=== PATIENT | female | born 1930 | race Two or more races ===

== ENCOUNTER 2016-08-01 21:30 | Inpatient (IN) | payer BC ==
--- NOTE | ~2016-08-01 | HP ---
History And Physical [id number] [facility] [place]. [address] NAME: MIGUELANGEL NICKERSON : 32 STATUS : ADM Abe PAT#: [id number] AGE: 85 ADM/REG DATE : 08/01/16 MR#: [id number] REPORT SERV DATE: 08/02/16 DICTATED BY: JANIE CRENSHAW DATE: 08/02/16 REPORT STATUS : Draft TRANSCRIBED BY: MODL DATE: 08/02/16 DATE OF ADMISSION: 08/01/2016 CHIEF COMPLAINT: An 85-year-old female, presenting with severe back pain and pain medicine- induced encephalopathy. HISTORY OF PRESENT ILLNESS: The patient's history was obtained through careful interview with the patient, daughter, and granddaughter coupled with review of [facility] medical records. The patient injured her back trying to lift something heavy on 06/23/2016. She went to see her primary care physician and was apparently placed on muscle relaxers. Then, over the days following this, she developed increasing debilitation, increasing back pain. She went to see her primary care physician again and was diagnosed with urinary tract infection and placed on an antibiotic. Then, on 06/30/2016, the patient injured her left shoulder and dislocated it. She became increasingly weak. She had to have her shoulder relocated, but was noncompliant with the sling that was given to her. Unfortunately, the patient redislocated her left shoulder on 07/08/2016 and then again on 07/12/2016, but by 07/12/2016, her back pain and debilitation was increasing so much that she was admitted overnight at [facility]. Her pain was increasing and becoming quite severe, and at first, it was thought the patient had mild compression fracture of the spine. Eight days ago, the patient was becoming so debilitated that she was admitted to [facility] for physical therapy. She has had only limited progress there, but has actually had three separate falls in the last eight days. She has been on hydrocodone scheduled every four to six hours and has had increasing confusion as a result of this, sometimes becoming delirious and combative and sometimes just somnolent and lethargic. She finally went on 08/01/[address] Harrison, orthopedic surgeon, who thought that the MRI that had been performed earlier did not show compression fracture, but just some spinal stenosis with bulging disks and thought the patient's back pain might improve with an epidural injection to the spine. This was planned for 08/02/2016. Unfortunately, the patient's confusion at [facility] has become so severe that she has been difficult to control and to calm down, therefore the family felt she had to come into the hospital for further evaluation and stabilization. She describes her back pain is in the middle without radiation or sciatica 10/10 severity. History And Physical [address] [address] NAME: MIGUELANGEL NICKERSON : 32 STATUS : ADM Abe PAT#: [id number] AGE: 85 ADM/REG DATE : 08/01/16 MR#: [id number] REPORT SERV DATE: 08/02/16 DICTATED BY: JANIE CRENSHAW DATE: 08/02/16 REPORT STATUS : Draft TRANSCRIBED BY: SRIDEVI DATE: 08/02/16 She has had constipation, nausea, abdominal tightness, discomfort. No shortness of breath. No chest pain. REVIEW OF SYSTEMS: Otherwise, a 14-point review of systems was obtained was negative. PAST MEDICAL HISTORY: 1. Recurrent dislocated left shoulder in 2017. 2. Hypertension. 3. Urinary tract infection. 4. Dyslipidemia. 5. Depression. 6. Spinal stenosis. 7. No cardiac disease. No lung disease. PAST SURGICAL HISTORY: 1. Left shoulder dislocation repair. 2. . 3. Appendectomy. 4. Hemorrhoidectomy. ALLERGIES: SEROQUEL, MORPHINE, AND DILAUDID. EACH OF WHICH SEEMS TO INCREASE THE PATIENT'S CONFUSION, SO NOT A "TRUE ALLERGY." SOCIAL HISTORY: She lives in the basement of her daughter's home. She was independent for activities of daily living prior to this injury. She is . Her granddaughter has worked as a nurse for Dr. Harrison in the past. The patient originally grew up in [place]. No tobacco abuse. No alcohol abuse. Now has been rehabilitating at [facility]. FAMILY HISTORY: Heart disease. CURRENT MEDICATIONS: Include hydrocodone 5 every four hours p.r.n., Norvasc 2.5 mg p.o. daily, Dulcolax, calcium with vitamin D, Colace, Pepcid, lisinopril 40 mg p.o. daily, naproxen p.r.n., Zofran, Paxil 30 mg p.o. daily, MiraLAX a packet daily. PHYSICAL EXAMINATION: VITAL SIGNS: Temperature 96.1, pulse 97, blood pressure 171/85, respiratory rate 24, O2 saturation 99% on room air. GENERAL: A pleasant, cooperative, female. Her pain is well controlled at the time of my evaluation. She is not in any particular distress. HEENT: Pupils equal, round, and reactive to light. No conjunctival pallor. No scleral icterus. Nares are patent. Oropharynx is clear of obstruction. Dry mucous membranes. NECK: Trachea midline. No thyromegaly. LYMPH: No cervical lymphadenopathy. No supraclavicular lymphadenopathy. History And Physical [address] [address] NAME: MIGUELANGEL NICKERSON : 32 STATUS : ADM Abe PAT#: [id number] AGE: 85 ADM/REG DATE : 08/01/16 MR#: [id number] REPORT SERV DATE: 08/02/16 DICTATED BY: JANIE CRENSHAW DATE: 08/02/16 REPORT STATUS : Draft TRANSCRIBED BY: SRIDEVI DATE: 08/02/16 RESPIRATORY: Clear to auscultation at bases. No wheezes, rales, or rhonchi. Normal respiratory effort. CARDIOVASCULAR: Regular rate and rhythm. No murmurs, rubs, or gallops. No extremity edema is appreciated. ABDOMEN: Soft, nontender, nondistended. Normal bowel sounds auscultated throughout. No hepatosplenomegaly. DERMATOLOGICAL: Warm and dry extremities. No pallor. No cyanosis. PSYCHIATRIC: A flat affect, but she is in a good mood. Currently, she is very lethargic, but easily aroused with vocal stimuli. She is poorly oriented to details of her recent history and time, but is oriented to location. LABORATORY DATA: White blood cell count 10.4, hemoglobin 13, hematocrit 38, platelets 570. Sodium 127, potassium 3.6, chloride 92, bicarb 27, BUN 18, creatinine 0.84, glucose 119. INR 1.0. Lactic acid 1.2. Liver enzymes within normal limits urine. STUDIES: 1. Chest x-ray by my own evaluation shows no acute cardiopulmonary process. 2. EKG by my own evaluation shows sinus rhythm, left axis deviation. ASSESSMENT AND PLAN: 1. Severe back pain. Consult Dr. Harrison, orthopedic surgeon, for epidural injection. Use low-dose p.r.n. IV morphine and low-dose p.r.n. tramadol. Once the epidural injection is completed, we will try the Tylenol and nonsteroidal anti-inflammatory drugs for primary control of the patient's pain. 2. Acute encephalopathy induced by narcotic medications. 3. Hyponatremia, slightly dehydrated. We will give IV fluids. I would like to hold Paxil for now (had been held at [facility] prior to this admission). I would like to check studies for syndrome inappropriate antidiuretic hormone. 4. Constipation. Try increasing stool softeners and monitor. KPL/MODL Janie Crenshaw M.D. / [id number] CC: Yo Morales D.O.
--- NOTE | ~2016-08-01 | DS ---
Discharge Summary [facility] [address] [place]. [address] NAME: MIGUELANGEL NICKERSON : 32 STATUS : DIS IN PAT#: [id number] AGE: 86 ADM/REG DATE : 08/01/16 MR#: [id number] REPORT SERV DATE: 08/14/16 DICTATED BY: NOAH KEY DATE: 08/13/16 REPORT STATUS : Draft TRANSCRIBED BY: MODFrancesco DATE: 08/13/16 ADMISSION DATE: 08/01/2016 DISCHARGE DATE: 08/12/2016 REASON FOR ADMISSION: This is an 85-year-old female, who presented with severe back pain and pain medicine-induced encephalopathy. DISCHARGE DIAGNOSES: 1. Severe back pain status post L2-L3 laminectomy and fusion. 2. Status post hyponatremia secondary to Paxil. 3. Hypertension. 4. Encephalopathy with suspected underlying dementia. HOSPITAL COURSE: Please see admission H and P from Dr. Jose Eduardo Villasenor on 08/02/2016 and interim discharge summary from Gabriela Hugo M.D. on 08/08/2016 for full details on admission and hospital stay. I picked up the patient on 08/09/2016. The patient was status post her L2-L3 laminectomy performed by Dr. Harrison on 08/07/2016 and was doing well but was awaiting rehab placement. She retained some confusion postoperatively. She was admitted with some encephalopathy that seemed to be due to pain medicine. There was no evidence for UTI, pneumonia, infectious diarrhea, any infectious causes or metabolic causes found while she was here at the hospital, and the patient even on minimal pain medicine continued to have some confusion. I suspect that she has some underlying dementia that is causing this. At any rate, she is not combative or agitated, just some mild confusion. DISCHARGE CONDITION: Stable. DISCHARGE MEDICATIONS: 1. Dulcolax 10 mg p.o. p.r.n. 2. Caltrate 600 plus D one tablet daily. 3. Colace 100 mg p.o. t.i.d. 4. Pepcid 20 mg p.o. daily. 5. Hydrocodone 5/325 one tablet p.o. q.4 hours p.r.n. 6. MiraLAX powder one packet p.o. daily. 7. Naproxen 250 mg p.o. p.r.n. 8. Norvasc 2.5 mg p.o. daily. 9. Lisinopril 40 mg p.o. daily. DISCHARGE PLAN: The patient is discharged to [facility] for rehab and follow up with primary care after rehab. KIA/SRIDEVI Noah Key APN Discharge Summary [address] [address] NAME: MIGUELANGEL NICKERSON : 32 STATUS : DIS IN PAT#: [id number] AGE: 86 ADM/REG DATE : 08/01/16 MR#: [id number] REPORT SERV DATE: 08/14/16 DICTATED BY: NOAH KEY DATE: 08/13/16 REPORT STATUS : Draft TRANSCRIBED BY: SRIDEVI DATE: 08/13/16 / [id number] CC: Yo Underwood FNP James Jolley II, M.D.
--- NOTE | ~2016-08-01 | CN ---
Consultation Report [facility] [address] [place]. [address] NAME: MIGUELANGEL GARIBAY : 32 STATUS : ADM Abe PAT#: [id number] AGE: 85 ADM/REG DATE : 08/01/16 MR#: [id number] REPORT SERV DATE: 08/02/16 DICTATED BY: DATE: REPORT STATUS : Draft TRANSCRIBED BY: MODFrancesco DATE: 08/02/16 CONSULTATION DATE OF CONSULTATION: REASON FOR CONSULTATION: Hyponatremia. HISTORY OF PRESENT ILLNESS: Ms. Garibay is an 85-year-old white female with a history of hypertension, spinal stenosis, and recent compression fractures. She was over at [place] a little over week ago, diagnosed with compression fractures and gait disturbance, sent to [facility]. The family is unaware of any history of hyponatremia in the past. Her sodium on 07/27/2016 at [facility] was 137, and apparently over there, she has been on routine Lortab, [id number] Paxil, Robaxin, and became increasingly more confused. Labs were checked. She was found to have a sodium of 126 and sent to the emergency room here at [facility] She still has continued back pain. Altered mental status is still present but improving per family. She is less fidgety. There is a mention of dementia in [place] history and physical; however, the son who is at bedside is unaware of any dementia diagnosis. We were asked to see the patient for a sodium of 127 today. There are no urine studies available for review. Her Paxil has been held. Lortab is on hold. She has no shortness of breath, no edema, no nausea, vomiting, or diarrhea. PAST MEDICAL HISTORY: Hypertension, question of dementia, UTI history, dyslipidemia, spinal stenosis, depression, appendectomy, and hysterectomy. ALLERGIES: SEROQUEL. SOCIAL HISTORY: She is and lives with her daughter. No tobacco or alcohol use. MEDICATIONS: At the time of consultation: Norvasc, Caltrate, Colace, Pepcid, Prinivil, magnesium, Paxil which was stopped today, and MiraLax. REVIEW OF SYSTEMS: Difficult to obtain from the patient given language barrier and the patient's confusion. PHYSICAL EXAMINATION: VITAL SIGNS: Temperature 97.7, blood pressure 189/85, pulse 95, respiratory rate 16, O2 saturation is 95%. GENERAL: This is a female who is an awake and alert. HEENT: Normocephalic, atraumatic. Conjunctivae clear. Sclerae anicteric. Oral mucosa is dry. NECK: No lymphadenopathy. Neck veins are flat. RESPIRATIONS: Even and unlabored breath sounds. Clear to auscultation. HEART: Rate is regular. No murmur, rub, or gallop. ABDOMEN: Soft and nontender. Bowel sounds active. No masses or hepatosplenomegaly. No Consultation Report [address] [facility] [place] [address] NAME: MIGUELANGEL GARIBAY : 32 STATUS : ADM Abe PAT#: [id number] AGE: 85 ADM/REG DATE : 08/01/16 MR#: [id number] REPORT SERV DATE: 08/02/16 DICTATED BY: DATE: REPORT STATUS : Draft TRANSCRIBED BY: MODL DATE: 08/02/16 CVA tenderness. BACK: Within normal limits. EXTREMITIES: No edema, cyanosis, or clubbing. SKIN: No unusual rash or skin lesions. NEUROLOGIC: No generalized weakness. Mood and affect, pleasant and appropriate. PERTINENT LABS AND X-RAYS: Ammonia 32 and serum osmolality 267. Sodium 127, potassium 3.9, chloride 96, CO2 of 25, BUN of 13, creatinine of 0.59, calcium 8.9. WBCs 8.1, H and H are 12 and 35, platelets 502,000. Chest x-ray with a question of some edema, but BNP is 46. IMPRESSION: 1. Hyponatremia. 2. Encephalopathy. 3. Back pain with compression fractures. 4. Depression. PLAN/RECOMMENDATION: Hyponatremia could be SIADH related to opiates. However, also could be due to decreased p.o. intake with sedation. We will check urine sodium levels, given appropriate, we will go ahead and start sodium tablets and monitor sodium levels. We would hold off any Lasix for these at this time. We will follow along with you. Thank you for the consultation. Her Paxil has already appropriately been held. STAS CHRISTIN Puente / [id number] CC: Yo Aburto PHILIP ANTHONY
--- NOTE | ~2016-08-01 | OP ---
Record Of Operation [facility] [address] [place]. [address] NAME: MIGUELANGEL NICKERSON : 32 STATUS : ADM IN [facility]#: [id number] AGE: 85 ADM/REG DATE : 08/01/16 MR#: [id number] REPORT SERV DATE: 08/08/16 DICTATED BY: PÉREZ HARRISON II DATE: 08/08/16 REPORT STATUS : Draft TRANSCRIBED BY: MODFrancesco DATE: 08/08/16 DATE OF PROCEDURE: 08/07/2016 PREOPERATIVE DIAGNOSES: 1. L2-L3 stenosis, severe with disk extrusion. 2. Multilevel degenerative disk disease. 3. Right greater than left lower extremity radiculopathy. POSTOPERATIVE DIAGNOSES: 1. L2-L3 stenosis, severe with disk extrusion. 2. Multilevel degenerative disk disease. 3. Right greater than left lower extremity radiculopathy. PROCEDURES: 1. L2-L3 near complete facetectomy. 2. Posterolateral arthrodesis L2-L3. 3. Use of local autograft, allograft substitute, and bone morphogenic protein. 4. Use of stereotactic spinal imaging and the microscope. FLUIDS: Approximately 1200 mL LR. ESTIMATED BLOOD LOSS: 30 mL. DRAINS: One drain. COMPLICATIONS: No complications. ANTIBIOTIC: Preoperatively. PREOPERATIVE HISTORY: This is a friendly 85-year-old female, who was admitted for hyponatremia and severe lower extremity pain and weakness. I had seen her in the office recently with her granddaughter (Shelby). 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 I saw the patient in the office with her granddaughter. It appears that she was diagnosed initially with fractures. However, once an MRI was obtained, it appears there are no fractures, but severe stenosis. However, the quality of the MRI was not good because of her motion artifacts. She was now admitted to the hospital for hyponatremia and confusion and likely acute encephalopathy from the narcotic medications. This has now been treated and she is now alert and oriented and having still severe pains in the legs. We tried an epidural steroid injection last week, this did not give any significant relief. I discussed with her as well as her daughter and granddaughter the pros and cons of observation versus surgery. The patient was in severe pain and unable to mobilize secondary to pain. Despite her age, she has been quite active and very independent. Discussed with the family the pros and cons, and they wished to proceed. DESCRIPTION OF PROCEDURE: After informed consent was obtained, the patient was brought to Record Of Operation [address] [place]. [address] NAME: MIGUELANGEL NICKERSON : 32 STATUS : ADM IN PAT#: [id number] AGE: 85 ADM/REG DATE : 08/01/16 MR#: [id number] REPORT SERV DATE: 08/08/16 DICTATED BY: PÉREZ HARRISON II DATE: 08/08/16 REPORT STATUS : Draft TRANSCRIBED BY: MODL DATE: 08/08/16 the operating room at her request and general anesthesia achieved. I discussed with the granddaughter prior to the surgery that I did not believe instrumentation would be necessary. However, I was suspicious that I may need to perform an in situ fusion as I suspect that I would have to be fairly aggressive with the facets bilaterally. At this point, the intraoperative CT scan was completed and the stereotactic guidance used throughout the case. The minimally invasive incision was performed on the right, and she had primarily right leg pain with some left lower extremity pain. The Quadrant retractor was placed and the facet was identified. The microscope was now brought into place, and under microscopic visualization, the laminectomy was initiated with the high-speed bur, the Kerrison rongeurs, and the curettes. The central canal was now well decompressed by removing approximately 80% of the facet on the right. We removed approximately 50% on the left. There was a significant amount of macro motion at this level seemingly from the degenerative process and the facets. At this point, the dura was well identified. It was moderately erythematous. At this point, the L3 nerve root on the right appeared to be well decompressed. At this point, interestingly, we noted a moderate amount of scarring about the dura especially on the left. Further inspection of this, identified an encapsulated fragment of disk. This was now largely removed. This allowed significant decompression of the left L3 nerve root. At this point, the irrigation was performed. Next, the facet capsule was removed. Again, this area did appear to be moderately unstable. The transverse processes were now dissected upon and decortication performed of the L2 and L3 transverse process. Local autograft, allograft substitute, and bone morphogenic protein were then placed along these decorticated surfaces. The deep drain was placed. Standard closure was performed. The patient was extubated and transferred to PACU in stable condition. MAYTE/SRIDEVI Pérez Harrison II, M.D. / [id number] CC: Yo Aburto MD
--- NOTE | ~2016-08-01 | IDS ---
Interim Discharge Summary [facility] [address] [place]. [address] NAME: MIGUELANGEL NICKERSON : 32 STATUS : ADM IN [facility]#: [id number] AGE: 85 ADM/REG DATE : 08/01/16 MR#: [id number] REPORT SERV DATE: 08/08/16 DICTATED BY: GENNY NAJERA DATE: 08/08/16 REPORT STATUS : Draft TRANSCRIBED BY: MODL DATE: 08/08/16 ADMISSION DATE: 08/01/2016 DISCHARGE DATE: Days of service provided from 08/02/2016 to 08/08/2016. CURRENT MEDICAL PROBLEMS: 1. Status post back surgery for severe spinal stenosis done per Dr. Harrison on 08/07/2016. 2. Hyponatremia secondary to Paxil, currently resolved. Paxil needs to be discontinued as outpatient. Currently not on Paxil. 3. Hypertension, controlled most of the time. Increases with an episodes of agitation. 4. Agitation and encephalopathy, improved. Avoid narcotic pain medications which could cause agitation and encephalopathy. 5. Constipation, present on admission, resolved. Make sure the patient does not become constipated again. CONSULTANTS: Automation Mechanic, Dr. Payan for hyponatremia and Surgical Spine Ortho, Dr. Harrison. HISTORY OF PRESENT ILLNESS: Briefly, this is a very pleasant 85-year-old female, who was admitted for severe back pain and pain medication-induced encephalopathy and severe confusion. The patient had evaluation by Dr. Harrison and in the beginning of admission, he had epidural injection for her and her pain was partially relieved with epidural steroid injection. She did not have pain at rest, but she was unable to move her legs because of pain. So, Dr. Harrison evaluated the patient and he decided to do MRI which showed on 08/05/2016. Her MRI of the lumbar spine showed left paracentral disk extrusion at L2-L3 with compression of the left L3 nerve root and disk material extending into the left lateral recess. The effective AP canal diameter was 7 mm broad-based disk osteophyte complex at L3- L4. The effective AP canal diameter was 6 mm degenerative endplate changes at L2-L3 and L3- L4. So, Dr. Harrison decided to do surgery on her and she had lumbar surgery yesterday on 08/07/2016. Postsurgically, the patient had some agitation and confusion and once again, I told that patient should avoid narcotic pain medications as much as possible because they are making her confused. Her blood pressure before surgery was in the normal range on her current medication regimen. This morning was elevated because of agitation, so intravenous hydralazine was added to her blood pressure medication regimen. Hyponatremia. The patient had very refractory hyponatremia on admission and the earth science faculty member was consulted, Dr. Payan and he recommended to stop Paxil. After Paxil was discontinued, she was on fluid restriction and her sodium normalized. Now her sodium is 135. Attention to my partner, when the time will come to be discharged, the patient should not be on any Paxil. Her encephalopathy resolved before surgery. She was awake, alert, oriented at her baseline. It is very important to avoid pain medications for the patient not to become encephalopathic Interim Discharge Summary [place] [id number] [place]. [address] NAME: MIGUELANGEL NICKERSON : 32 STATUS : ADM IN [facility]#: [id number] AGE: 85 ADM/REG DATE : 08/01/16 MR#: [id number] REPORT SERV DATE: 08/08/16 DICTATED BY: GENNY NAJERA DATE: 08/08/16 REPORT STATUS : Draft TRANSCRIBED BY: SRIDEVI DATE: 08/08/16 again and also on admission, she was constipated and this is resolved, so it is also important to avoid constipation which could also cause encephalopathy. I discussed with the patient's family with her granddaughter, Rachid who used to be a nurse here and with her daughter regarding the patient's mentation and they told me that the patient does not have dementia, she just became confused because of the back pain and narcotic pain medications. They told me that in the shelter prior she was labeled as dementia, but in reality she does not have the diagnosis. Her blood pressure was rechecked. It is 130/61 in the stable range. She is able to drink fluids, so we will discontinue her intravenous fluids since she pulled out her IV. If necessary, nurse can restart them later. She is on Prinivil 20 mg a day, Norvasc 5 mg a day. She is on MiraLAX daily, Colace 100 p.o. b.i.d. Once again, she should not be on a Paxil and her sodium level today is 135, and she has a normal kidney function of creatinine 0.65. My partner will see this patient starting tomorrow morning. MG/MODL Genny Najera M.D. / [id number] CC: Yo Aburto D.O. Claude Galphin, M.D. James Jolley II, M.D.
[~2016-08-01 21:30] MED LIST: ALEVE220 MG PO; CALTRA600D PO; DSS PO; LISINOPRIL40 MG PO; METHOC500B PO; MIRALAX POWDER1 PKT PO; NORCO1 TA1 PO; NORV25 PO; NORVASC PO; PAXIL30 MG PO; PEP20 PO; ZOFRAN ODT4 MG PO
[2016-08-01 21:41] LABS: BASOPHILS 0.2 %; BASOPHILS ABSOLUTE 0.02 10/3/uL (0.0-0.16); EOSINOPHILS 0.2 %; EOSINOPHILS ABSOLUTE 0.02 10/3/uL (0.0-0.53); ER CBC TAT 0 Hrs 09 Mins; HEMATOCRIT 38.4 % (36.0-48.0); HEMOGLOBIN 13.2 g/dL (12.0-16.0); IMMATURE GRANULOCYTES 0.4 %; IMMATURE GRANULOCYTES ABSOLUTE 0.04 10/3/uL (0.0-0.11); LYMPHOCYTES 15.7 %; LYMPHOCYTES ABSOLUTE 1.63 10/3/uL (0.67-4.30); MEAN CORPUS HGB CONC 34.4 g/dL (32.0-36.0); MEAN CORPUSCULAR HEMOGLOB 30.2 pg (26.0-34.0); MEAN CORPUSCULAR VOLUME 87.9 fL (80-100); MEAN PLATELET VOLUME 9.4 fL (9.2-13.0); MONOCYTES 11.2 %; MONOCYTES ABSOLUTE 1.16 10/3/uL (0.21-1.20); NEUTROPHILS 72.3 %; NEUTROPHILS ABSOLUTE 7.48 10/3/uL (2.02-8.40); PLATELET COUNT 570 10/3/uL (150-400); RBC DISTRIBUTION WIDTH 13.3 % (12.0-16.0); RED CELL COUNT 4.37 10/6/uL (4.0-5.6); WHITE BLOOD CELLS 10.4 10/3/uL (4.5-10.5)
[2016-08-01 21:42] LABS: MANUAL DIFF NO %
[2016-08-01 21:47] LABS: PARTIAL THROMBO TIME 26.8 SEC (22.5-37.2); PROTIME (NOT ORD) 13.4 SEC (12.0-14.5)
[2016-08-01 21:55] LABS: ALBUMIN 3.8 G/DL (3.5-5.0); ALKALINE PHOSPHATASE 111 U/L (45-117); BUN (BLOOD UREA NITROGEN) 18 MG/DL (6-23); CALCIUM, SERUM 9.2 MG/DL (8.5-10.4); CHLORIDE, SERUM 92 MMOL/L (96-112); CO2 (CARBON DIOXIDE) 27 MMOL/L (24-34); CREATININE 0.84 MG/DL (0.55-1.02); GFR AFRICAN AMERICAN 74 ML/MIN (>=60); GFR NON AFRICAN AMERICAN 64 ML/MIN (>=60); GLOBULIN 3.9 G/DL (2.5-4.1); GLUCOSE, SERUM 119 MG/DL (60-99); POTASSIUM, SERUM 3.8 MMOL/L (3.5-5.3); SGPT(ALT) 37 U/L (5-65); SODIUM, SERUM 127 MMOL/L (135-148); TOTAL BILIRUBIN 0.5 MG/DL (0-1.2); TOTAL PROTEIN 7.7 G/DL (6.0-8.5)
[2016-08-01 21:56] LABS: SGOT(AST) 39 U/L (5-40)
[2016-08-01 22:01] LABS: ASCORBIC ACID (UR NOT ORDER) NEG (NEG); BILIRUBIN, URINE SMALL (NEG); ER URINALYSIS TAT 0 Hrs 23 Mins; KETONE, URINE 20 MG/DL (NEG); LEUKOCYTE ESTERASE(NOT OR NEG (NEG); NITRITE (URINE) NEG (NEG); WBC (NOT ORDERED) (RFLEX) 3 (0-5)
[2016-08-01 22:06] LABS: LACTATE 1.5 MMOL/L (0.3-2.4)
[2016-08-01 22:46] LABS: PROCALCITONIN 0.09 ng/mL (<0.5)
[2016-08-01] MEDS ORDERED: BISR PR (23:22)
[2016-08-01] MEDS ORDERED: CALTRA600D PO (23:23)
[2016-08-01] MEDS ORDERED: PEP20 PO (23:24)
[2016-08-01] MEDS ORDERED: DSS PO (23:24)
[2016-08-01] MEDS ORDERED: NORV25 PO (23:25)
[2016-08-01] MEDS ORDERED: NAP250 PO (23:25)
[2016-08-01] MEDS ORDERED: NORCO1 TA1 PO (23:25)
[2016-08-01] MEDS ORDERED: MIRALAX POWDER1 PKT PO (23:25)
[2016-08-01] MEDS ORDERED: PAXIL30 MG PO (23:26)
[2016-08-01] MEDS ORDERED: LISINOPRIL40 MG PO (23:26)
[2016-08-01] MEDS ORDERED: ZOFRAN ODT4 MG PO/SL (23:27)
[2016-08-02 06:36] LABS: BASOPHILS 0.2 %; BASOPHILS ABSOLUTE 0.02 10/3/uL (0.0-0.16); EOSINOPHILS 0.2 %; EOSINOPHILS ABSOLUTE 0.02 10/3/uL (0.0-0.53); HEMOGLOBIN 11.9 g/dL (12.0-16.0); IMMATURE GRANULOCYTES 0.4 %; IMMATURE GRANULOCYTES ABSOLUTE 0.04 10/3/uL (0.0-0.11); LYMPHOCYTES 14.9 %; LYMPHOCYTES ABSOLUTE 1.42 10/3/uL (0.67-4.30); MEAN CORPUS HGB CONC 34.8 g/dL (32.0-36.0); MEAN CORPUSCULAR HEMOGLOB 30.8 pg (26.0-34.0); MEAN CORPUSCULAR VOLUME 88.6 fL (80-100); MEAN PLATELET VOLUME 9.1 fL (9.2-13.0); MONOCYTES 9.8 %; MONOCYTES ABSOLUTE 0.93 10/3/uL (0.21-1.20); NEUTROPHILS 74.5 %; NEUTROPHILS ABSOLUTE 7.07 10/3/uL (2.02-8.40); PLATELET COUNT 473 10/3/uL (150-400); RBC DISTRIBUTION WIDTH 13.4 % (12.0-16.0); RED CELL COUNT 3.86 10/6/uL (4.0-5.6); WHITE BLOOD CELLS 9.5 10/3/uL (4.5-10.5)
[2016-08-02 06:37] LABS: HEMATOCRIT 34.2 % (36.0-48.0); MANUAL DIFF NO %
[2016-08-02 06:41] LABS: INTERNATIONAL NORMAL RATI 1.1 UNITS (-); PROTIME (NOT ORD) 14.3 SEC (12.0-14.5)
[2016-08-02 06:44] LABS: PARTIAL THROMBO TIME 22.8 SEC (22.5-37.2)
[2016-08-02 06:57] LABS: ALBUMIN 3.4 G/DL (3.5-5.0); BUN (BLOOD UREA NITROGEN) 16 MG/DL (6-23); CALCIUM, SERUM 8.4 MG/DL (8.5-10.4); CHLORIDE, SERUM 96 MMOL/L (96-112); CREATININE 0.67 MG/DL (0.55-1.02); GFR AFRICAN AMERICAN 94 ML/MIN (>=60); GFR NON AFRICAN AMERICAN 81 ML/MIN (>=60); GLOBULIN 3.3 G/DL (2.5-4.1); GLUCOSE, SERUM 116 MG/DL (60-99); POTASSIUM, SERUM 3.9 MMOL/L (3.5-5.3); SGOT(AST) 38 U/L (5-40); SGPT(ALT) 36 U/L (5-65); SODIUM, SERUM 126 MMOL/L (135-148); TOTAL BILIRUBIN 0.7 MG/DL (0-1.2); TOTAL PROTEIN 6.7 G/DL (6.0-8.5); TROPONIN I <0.02 NG/ML (<0.05)
[2016-08-02 06:58] LABS: ALKALINE PHOSPHATASE 96 U/L (45-117); CO2 (CARBON DIOXIDE) 22 MMOL/L (24-34)
[2016-08-02 12:58] LABS: BASOPHILS 0.2 %; BASOPHILS ABSOLUTE 0.02 10/3/uL (0.0-0.16); EOSINOPHILS 0.1 %; EOSINOPHILS ABSOLUTE 0.01 10/3/uL (0.0-0.53); HEMATOCRIT 35.2 % (36.0-48.0); HEMOGLOBIN 12.3 g/dL (12.0-16.0); IMMATURE GRANULOCYTES 0.2 %; IMMATURE GRANULOCYTES ABSOLUTE 0.02 10/3/uL (0.0-0.11); LYMPHOCYTES 11.8 %; LYMPHOCYTES ABSOLUTE 0.95 10/3/uL (0.67-4.30); MEAN CORPUS HGB CONC 34.9 g/dL (32.0-36.0); MEAN CORPUSCULAR HEMOGLOB 31.1 pg (26.0-34.0); MEAN CORPUSCULAR VOLUME 89.1 fL (80-100); MEAN PLATELET VOLUME 8.9 fL (9.2-13.0); MONOCYTES 9.7 %; MONOCYTES ABSOLUTE 0.78 10/3/uL (0.21-1.20); NEUTROPHILS ABSOLUTE 6.27 10/3/uL (2.02-8.40); PLATELET COUNT 502 10/3/uL (150-400); RBC DISTRIBUTION WIDTH 13.1 % (12.0-16.0); RED CELL COUNT 3.95 10/6/uL (4.0-5.6); WHITE BLOOD CELLS 8.1 10/3/uL (4.5-10.5)
[2016-08-02 12:59] LABS: MANUAL DIFF NO %
[2016-08-02 13:16] LABS: BUN (BLOOD UREA NITROGEN) 13 MG/DL (6-23); CALCIUM, SERUM 8.9 MG/DL (8.5-10.4); CHLORIDE, SERUM 96 MMOL/L (96-112); CO2 (CARBON DIOXIDE) 25 MMOL/L (24-34); CREATININE 0.59 MG/DL (0.55-1.02); GFR AFRICAN AMERICAN 98 ML/MIN (>=60); GFR NON AFRICAN AMERICAN 85 ML/MIN (>=60); GLUCOSE, SERUM 124 MG/DL (60-99); POTASSIUM, SERUM 3.9 MMOL/L (3.5-5.3); SODIUM, SERUM 127 MMOL/L (135-148)
[2016-08-03 09:33] LABS: ALBUMIN 3.3 G/DL (3.5-5.0); BUN (BLOOD UREA NITROGEN) 12 MG/DL (6-23); CALCIUM, SERUM 8.7 MG/DL (8.5-10.4); CHLORIDE, SERUM 95 MMOL/L (96-112); CO2 (CARBON DIOXIDE) 21 MMOL/L (24-34); CREATININE 0.61 MG/DL (0.55-1.02); GFR AFRICAN AMERICAN 97 ML/MIN (>=60); GFR NON AFRICAN AMERICAN 84 ML/MIN (>=60); GLUCOSE, SERUM 105 MG/DL (60-99); PHOSPHORUS, SERUM 2.3 MG/DL (2.5-4.5); POTASSIUM, SERUM 4.2 MMOL/L (3.5-5.3); SODIUM, SERUM 126 MMOL/L (135-148); T4 (THYROXINE) TOTAL 9.5 MCG/DL (4.5-12.0); ULTRASENSITIVE TSH 0.961 MCIU/ML (0.358-3.740)
[2016-08-04 05:50] LABS: BUN (BLOOD UREA NITROGEN) 15 MG/DL (6-23); CALCIUM, SERUM 8.8 MG/DL (8.5-10.4); CHLORIDE, SERUM 98 MMOL/L (96-112); CO2 (CARBON DIOXIDE) 22 MMOL/L (24-34); CREATININE 0.63 MG/DL (0.55-1.02); GFR AFRICAN AMERICAN 96 ML/MIN (>=60); GFR NON AFRICAN AMERICAN 83 ML/MIN (>=60); GLUCOSE, SERUM 107 MG/DL (60-99); POTASSIUM, SERUM 3.6 MMOL/L (3.5-5.3); SODIUM, SERUM 131 MMOL/L (135-148)
[2016-08-04 12:32] LABS: FOLATE 14.3 NG/ML (>5.2)
[2016-08-05 05:21] LABS: BUN (BLOOD UREA NITROGEN) 17 MG/DL (6-23); CALCIUM, SERUM 8.4 MG/DL (8.5-10.4); CHLORIDE, SERUM 101 MMOL/L (96-112); CO2 (CARBON DIOXIDE) 21 MMOL/L (24-34); CREATININE 0.65 MG/DL (0.55-1.02); GFR AFRICAN AMERICAN 95 ML/MIN (>=60); GFR NON AFRICAN AMERICAN 82 ML/MIN (>=60); GLUCOSE, SERUM 109 MG/DL (60-99); POTASSIUM, SERUM 4.1 MMOL/L (3.5-5.3); SODIUM, SERUM 132 MMOL/L (135-148)
[2016-08-07 06:09] LABS: HEMATOCRIT 37.9 % (36.0-48.0); HEMOGLOBIN 13.1 g/dL (12.0-16.0)
[2016-08-07 06:19] LABS: BUN (BLOOD UREA NITROGEN) 17 MG/DL (6-23); CALCIUM, SERUM 8.9 MG/DL (8.5-10.4); CHLORIDE, SERUM 100 MMOL/L (96-112); CO2 (CARBON DIOXIDE) 24 MMOL/L (24-34); CREATININE 0.77 MG/DL (0.55-1.02); GFR AFRICAN AMERICAN 83 ML/MIN (>=60); GFR NON AFRICAN AMERICAN 71 ML/MIN (>=60); GLUCOSE, SERUM 108 MG/DL (60-99); POTASSIUM, SERUM 4.4 MMOL/L (3.5-5.3); SODIUM, SERUM 133 MMOL/L (135-148)
[2016-08-08 05:50] LABS: HEMATOCRIT 37.8 % (36.0-48.0); HEMOGLOBIN 13.2 g/dL (12.0-16.0)
[2016-08-08 07:12] LABS: BUN (BLOOD UREA NITROGEN) 16 MG/DL (6-23); CALCIUM, SERUM 9.3 MG/DL (8.5-10.4); CHLORIDE, SERUM 105 MMOL/L (96-112); CO2 (CARBON DIOXIDE) 20 MMOL/L (24-34); CREATININE 0.65 MG/DL (0.55-1.02); GFR AFRICAN AMERICAN 95 ML/MIN (>=60); GFR NON AFRICAN AMERICAN 82 ML/MIN (>=60); GLUCOSE, SERUM 165 MG/DL (60-99); POTASSIUM, SERUM 4.7 MMOL/L (3.5-5.3); SODIUM, SERUM 135 MMOL/L (135-148)
[2016-08-09 05:05] LABS: HEMATOCRIT 36.5 % (36.0-48.0); HEMOGLOBIN 12.6 g/dL (12.0-16.0)
[2016-08-09 05:26] LABS: BUN (BLOOD UREA NITROGEN) 18 MG/DL (6-23); CALCIUM, SERUM 9.2 MG/DL (8.5-10.4); CHLORIDE, SERUM 102 MMOL/L (96-112); CO2 (CARBON DIOXIDE) 24 MMOL/L (24-34); CREATININE 0.74 MG/DL (0.55-1.02); GFR AFRICAN AMERICAN 87 ML/MIN (>=60); GFR NON AFRICAN AMERICAN 75 ML/MIN (>=60); POTASSIUM, SERUM 4.2 MMOL/L (3.5-5.3); SODIUM, SERUM 136 MMOL/L (135-148)
[2016-08-09 05:28] LABS: GLUCOSE, SERUM 115 MG/DL (60-99)
[2016-08-10 15:07] LABS: BASOPHILS 0.1 %; BASOPHILS ABSOLUTE 0.01 10/3/uL (0.0-0.16); EOSINOPHILS 0.2 %; EOSINOPHILS ABSOLUTE 0.02 10/3/uL (0.0-0.53); HEMATOCRIT 37.5 % (36.0-48.0); HEMOGLOBIN 12.9 g/dL (12.0-16.0); IMMATURE GRANULOCYTES 0.4 %; IMMATURE GRANULOCYTES ABSOLUTE 0.04 10/3/uL (0.0-0.11); LYMPHOCYTES 11.7 %; LYMPHOCYTES ABSOLUTE 1.19 10/3/uL (0.67-4.30); MANUAL DIFF NO %; MEAN CORPUS HGB CONC 34.4 g/dL (32.0-36.0); MEAN CORPUSCULAR HEMOGLOB 31.2 pg (26.0-34.0); MEAN CORPUSCULAR VOLUME 90.8 fL (80-100); MEAN PLATELET VOLUME 8.8 fL (9.2-13.0); MONOCYTES 12.5 %; MONOCYTES ABSOLUTE 1.27 10/3/uL (0.21-1.20); NEUTROPHILS 75.1 %; NEUTROPHILS ABSOLUTE 7.62 10/3/uL (2.02-8.40); PLATELET COUNT 455 10/3/uL (150-400); RBC DISTRIBUTION WIDTH 13.7 % (12.0-16.0); RED CELL COUNT 4.13 10/6/uL (4.0-5.6); WHITE BLOOD CELLS 10.2 10/3/uL (4.5-10.5)
[2016-08-10 19:37] LABS: A/G RATIO 0.8 (0.7-1.9); ALKALINE PHOSPHATASE 105 U/L (45-117); BUN (BLOOD UREA NITROGEN) 20 MG/DL (6-23); CALCIUM, SERUM 8.6 MG/DL (8.5-10.4); CHLORIDE, SERUM 100 MMOL/L (96-112); CO2 (CARBON DIOXIDE) 27 MMOL/L (24-34); CREATININE 0.74 MG/DL (0.55-1.02); GFR AFRICAN AMERICAN 87 ML/MIN (>=60); GFR NON AFRICAN AMERICAN 75 ML/MIN (>=60); GLOBULIN 3.7 G/DL (2.5-4.1); GLUCOSE, SERUM 122 MG/DL (60-99); SGPT(ALT) 46 U/L (5-65); SODIUM, SERUM 134 MMOL/L (135-148); TOTAL BILIRUBIN 0.6 MG/DL (0-1.2); TOTAL PROTEIN 6.7 G/DL (6.0-8.5)
[2016-08-10 19:38] LABS: POTASSIUM, SERUM 4.7 MMOL/L (3.5-5.3); SGOT(AST) 60 U/L (5-40)
== END 2016-08-12 20:10 | DRG 459 ==
LOC: ER 21:30 → 2SO 23:13 → 5NO 23:25 → SDC/OF 08-07 10:12 → 3SO 08-07 11:44
PROVIDERS: Emergency Medicine; Hospitalist; Internal Medicine; Nurse Practitioner Gerontology; Orthopaedic Surgery
PROC: 3E0R33Z Introduction of Anti-inflammatory into Spinal Canal, Percutaneous Approach (ICD-10-PCS; principal; 2016-08-02 08:45)
PROC: 0SG0071 Fusion of Lumbar Vertebral Joint with Autologous Tissue Substitute, Posterior Approach, Posterior Column, Open Approach (ICD-10-PCS; 2016-08-07 07:45)
DX: M51.16 Intervertebral disc disorders with radiculopathy, lumbar region (principal); G92 Toxic encephalopathy; E86.0 Dehydration; E87.1 Hypo-osmolality and hyponatremia; N39.0 Urinary tract infection, site not specified; M48.06 Spinal stenosis, lumbar region; T40.2X5A Adverse effect of other opioids, initial encounter; T43.225A Adverse effect of selective serotonin reuptake inhibitors, initial encounter; I10 Essential (primary) hypertension; E78.5 Hyperlipidemia, unspecified; K59.00 Constipation, unspecified; F32.9 Major depressive disorder, single episode, unspecified; Z90.49 Acquired absence of other specified parts of digestive tract; Z91.19 Patient's noncompliance with other medical treatment and regimen; Z91.81 History of falling; Z88.8 Allergy status to other drugs, medicaments and biological substances; Z88.5 Allergy status to narcotic agent
CPT/HCPCS: 71010; 72148; 73030-LT; 80048; 80053; 80069; 81001; 82140; 82533; 82607; 82746; 82962; 83605; 83735; 83880; 83930; 83935; 84145; 84300; 84436; 84443; 84484; 85014; 85018; 85025; 85610; 85730; 87040; 88304; 88311; 93005; 96374; 96375; 97110-GO; 97112-GO; 97162-GP; 97163-GP; 97164-GP; 97165-GO; 97168-GO; 97530-GO; 97530-GP; 97535-GO; 99285; A9270-GY; J0360; J0690; J1030; J1040; J2250; J2405; J2710; J3010; Q9967